=== PATIENT | female | born 1995 | race Caucasian/White ===

== ENCOUNTER 2017-04-15 11:28 | Emergency (ER) | payer OTHER ==
[~2017-04-15] VITALS: Ht 149.9 cm; Wt 47.4 kg
[2017-04-15 11:35] VITALS: TEMP 36.6; Ht 149.9 cm; Wt 47.4 kg
--- NOTE | 2017-04-15 14:52 | DIAGNOSTIC IMAGING REPORT ---
PELVIC ULTRASOUND, TRANSABDOMINAL AND TRANSVAGINAL HISTORY: r/o foreign body, concern for retained tampon, not seen on pelvic exam COMPARISON: None. FINDINGS: Uterus: 5.9 x 4.2 x 2.3 cm. No uterine masses. Endometrial stripe: 3 mm in thickness. Right ovary: Normal in size and demonstrates normal color flow. Left ovary: Normal in size and demonstrates normal color flow. Miscellaneous:Trace pelvic free fluid. No foreign bodies identified within the uterus, cervix, or visualized vagina. IMPRESSION: 1. No significant abnormality identified within the pelvis. 2. Small amount of pelvic free fluid is likely physiologic. Electronically signed by: Valdez Chaparro M.D. 04/15/2017 2:50 PM Dictated Date/Time: 04/15/2017 2:48 PM
[2017-04-15 15:01] VITALS: BP 125/69; PULSE 61; O2SAT 100
--- NOTE | 2017-04-15 15:16 | EMERGENCY ROOM VISIT NOTE ---
History Report prepared by Kaylyn: Nicole Moss Under the Supervision of: Dr. Joseph Sky M.D. First contact with patient: 12:22 Chief Complaint: FOREIGNBODY ANY BODY PART Stated Complaint: TAMPON LODGED INSIDE History of Present Illness The patient is a 21 year old female with no past medical history who presents to the ED with a cc of an episode of a foreign body being lodged occurring last night. The patient states that she got drunk last night and had sex while she still had a tampon in. She reports that she cannot find it. She states that she last put a tampon in 16 hours ago. Negative urinary symptoms and abnormal bowel movements. She notes that she is on control. Source of History: patient Onset: last night Position: other (global) Quality: other (lodged) Timing: other (episode) Associated Symptoms: No urinary symptoms Note: The patient denies abnormal bowel movements. Review of Systems See HPI for pertinent positives and negatives. A total of ten systems were reviewed and were otherwise negative. Past Medical & Surgical Medical Problems: (1) No Known Active Medical Problems Family History Patient reports no known family medical history. Social History Alcohol Use: occasionally Marital Status: in relationship Housing Status: lives with significant other Occupation Status: [employer] student Current/Historical Medications No Active Prescriptions or Reported Meds Allergies Coded Allergies: No Known Allergies (Unverified , 04/15/17) Physical Exam Vital Signs Date Time Temp Pulse Resp B/P (MAP) Pulse Ox O2 Delivery O2 Flow Rate FiO2 04/15/17 15:01 61 20 125/69 100 Room Air 04/15/17 11:35 36.6 73 16 127/82 100 Physical Exam GENERAL: Awake, alert, well-appearing, NAD HENT: Normocephalic, atraumatic. EYES: Normal conjunctiva. Sclera non-icteric. NECK: Supple. No nuchal rigidity. FROM. RESPIRATORY: CTAB, no rhonchi, wheezing, crackles CARDIAC: RRR, no MRG ABDOMEN: Soft, NTND, BS+ : Right os was closed. Visualized scant dark blood. No foreign body appreciated. SKIN: No rash or jaundice noted. Medical Decision & Procedures ER Provider Diagnostic Interpretation: Radiology results as stated below per my review and radiologist interpretation: PELVIC ULTRASOUND, TRANSABDOMINAL AND TRANSVAGINAL HISTORY: r/o foreign body, concern for retained tampon, not seen on pelvic exam COMPARISON: None. FINDINGS: Uterus: 5.9 x 4.2 x 2.3 cm. No uterine masses. Endometrial stripe: 3 mm in thickness. Right ovary: Normal in size and demonstrates normal color flow. Left ovary: Normal in size and demonstrates normal color flow. Miscellaneous:Trace pelvic free fluid. No foreign bodies identified within the uterus, cervix, or visualized vagina. IMPRESSION: 1. No significant abnormality identified within the pelvis. 2. Small amount of pelvic free fluid is likely physiologic. Electronically signed by: Valdez Chaparro M.D. 04/15/2017 2:50 PM Dictated Date/Time: 04/15/2017 2:48 PM ED Course 1238: The patient was evaluated in room B5. A complete history and physical exam was performed. 1310: I discussed the patient's case with Dr. Chaparro - Radiology, who states that an ultrasound may show the foreign body. 1457: I reevaluated the patient. Discussed results and discharge instructions: she verbalized understanding and agreement. The patient is ready for discharge. Medical Decision The patient is a 21 year old female with no past medical history who presents to the ED with a cc of an episode of a foreign body being lodged occurring last night. Differential diagnoses include retained foreign body. Patient was seen and evaluated the bedside. Patient did have intercourse last evening. Patient believes that she left her tampon and not Finding. Patient did have a pelvic exam did not show any evidence of any foreign body. She did have some scant brownish discharge which is likely related to the ending of her menstrual period. I did discuss the patient with the radiologist stated a transvaginal ultrasound would not be unreasonable to see if the results were foreign body. Patient did have this completed which showed no evidence of any foreign body. I discussed with the patient that this was not 100% sensitive for ruling this out and we could get a CT however we elected not to do this at this time. Patient was told to follow-up with [facility] and return if she developed any nausea vomiting, fevers, purulent or foul-smelling vaginal discharge, or lower abdominal pain. Patient was agreeable to this plan of care. Patient was given strict follow-up, discharge, and return precautions. All questions were answered. Patient was deemed suitable for outpatient follow-up at this time. Patient agreed with the plan of care and was safely discharged home. The chart was completed utilizing [employer] Speech voice recognition software. Grammatical errors, random word insertions, pronoun errors, and incomplete sentences are an occasional consequence of this system due to software limitations, ambient noise, and hardware issues. Any formal questions or concerns about the content, text, or information contained within the body of this dictation should be directly addressed to the physician for clarification. Medication Reconcilliation Current Medication List: was personally reviewed by me Blood Pressure Screening Patient's blood pressure: Normal blood pressure Blood pressure disposition: Did not require urgent referral Consults Time Called: 1306 Consulting Physician: Dr. Chaparro - Radiology Returned Call: 1310 I discussed the patient's case with Dr. Chaparro - Radiology, who states that an ultrasound may show the foreign body. Impression Primary Impression: Normal vaginal exam Scribe Attestation The scribe's documentation has been prepared under my direction and personally reviewed by me in its entirety. I confirm that the note above accurately reflects all work, treatment, procedures, and medical decision making performed by me. Departure Information Dispostion Home / Self-Care Prescriptions No Active Prescriptions or Reported Meds Referrals [facility] Forms HOME CARE DOCUMENTATION FORM, IMPORTANT VISIT INFORMATION, WORK / SCHOOL INSTRUCTIONS Patient Instructions My [facility] Additional Instructions Please return to the emergency department if you have worsening or recurrent symptoms not amenable to at-home treatment. Please call for a follow-up appointment with her primary care physician. Please take your medications as prescribed. If you have other concerns and/or complaints please feel free to also call your primary care physician's office or return the ED for further evaluation, management, and treatment. As discussed please follow-up with [facility] for any of your women's health needs. If you do develop nausea, vomiting, severe abdominal pain , or foul-smelling discharge please return for further evaluation and treatment. You may take 600 mg Ibuprofen every 6 hours as needed for pain with food for no more than 2 consecutive days. You may take tylenol 1000 mg every 6 hours as needed for pain. You may take motrin and tylenol separately or at the same time. Take your medications as prescribed. You have been examined and treated today on an emergency basis only. This is not a substitute for, or an effort to provide, complete comprehensive medical care. It is impossible to recognize and treat all injuries or illnesses in a single emergency department visit. It is therefore important that you follow up closely with [facility], your PCP, and/or your specialist(s). Call as soon as possible for an appointment. Thank you for your time and consideration. I look forward to speaking with you again soon. Please don't hesitate to call us if you have any questions.
== END 2017-04-15 15:23 | disposition home or self-care (01) ==
LOC: C.EDB 11:31
DX: Z01.419 Encounter for gynecological examination (general) (routine) without abnormal findings (principal); Z79.3 Long term (current) use of hormonal contraceptives